=== PATIENT | female | born 1955 | race Caucasian/White ===

== ENCOUNTER → 2017-07-08 12:45 | Outpatient (CLI) | payer BC, SELFPAY ==
--- NOTE | 2017-07-08 12:50 | CA_ITS ---
PROCEDURE: 2-D M-mode and color Doppler study INDICATIONS FOR THE TEST: Chest pain COPD Heart Murmur Tobacco Smoking Palpitations Fatigue Syncope Edema Hypertension+Diabetes Mellitus Rheumatic Fever SOB+MCLAIN Obesity Hyperlipidemia Family History HD Additional History PATIENT INFORMATION HEIGHT: 65 WEIGHT:159 GENDER: Female B/P:128/87 2-D/M-MODE INTERPRETATION: 2-D MEASUREMENTS OBSERVED VALUES IN CMS Right Ventricular Dimension (RVDd) 1.9 Interventricular Septum (Thickness)(IVsd) 0.9 Left Ventricular Internal Dimensions(LVIDd) 3.8 Left Ventricular Posterior Wall (Thickness)(LVPWd) 1.2 Aortic Root 2.8 Aortic Cusp Separation 1.9 Left Atrial Dimensions (LAD) 3.8 2D 1. Left atrium is mildly enlarged, left ventricle is normal size, there is mild concentric left ventricular hypertrophy, visually estimated ejection fraction 55% with no obvious regional wall motion abnormality, there is abnormal septal motion. 2. The right atrium and right ventricle size and contractility. 3. The aortic valve is minimally thickened 4.mitral and tricuspid valve are grossly normal. 5. The pulmonic valve is poorly visualized. 6. There is no significant pericardial effusion noted. DOPPLER INTERROGATION: Doppler interrogation of the aortic, mitral and tricuspid valvular presence of mild mitral and tricuspid regurgitation, tricuspid regurgitant jet velocity insufficient for calculation of the right ventricular systolic pressure, grade 1 diastolic dysfunction seen with tissue Doppler evidence of raised left atrial pressure. CONCLUSION: 1. Mildly enlarged left atrium, normal left ventricular size, mild concentric left ventricular hypertrophy, visually estimated ejection fraction 55% with no obvious regional wall motion abnormality, there is abnormal septal motion. Grade 1 diastolic dysfunction seen with tissue Doppler evidence of raised left atrial pressure. 2. Mild mitral and tricuspid regurgitation 3. No significant pericardial effusion noted.
== END ==
PROVIDERS: PCP Emergency Medicine; Visit Provider Internal Medicine Cardiovascular Disease
DX: R94.31 Abnormal electrocardiogram [ECG] [EKG] (principal); I10 Essential (primary) hypertension; K21.9 Gastro-esophageal reflux disease without esophagitis
CPT/HCPCS: 93306

== ENCOUNTER → 2017-07-15 12:53 | Outpatient (CLI) | payer BC, SELFPAY | PROVIDERS: PCP Emergency Medicine; Visit Provider Internal Medicine Cardiovascular Disease | DX: G47.33 Obstructive sleep apnea (adult) (pediatric) (principal); I10 Essential (primary) hypertension | CPT/HCPCS: 95806; G0399 ==

== ENCOUNTER → 2017-07-19 09:15 | Outpatient (CLI) | payer BC, SELFPAY ==
[2017-07-19 11:58] LABS: Anion Gap 11.6 mEq/L (5-15); Blood Urea Nitrogen 16 mg/dL (7-18); Carbon Dioxide 29 mmol/L (21.0-32.0); Chloride 105 mmol/L (98-107); Creatinine,Serum 0.73 mg/dL (0.55-1.02); Estimated Glomerular Filt Rate 81 ml/min (>60); GFR (African American) 98 ML/MIN (>60); Glucose 90 mg/dL (74-106); Potassium 4.6 mmoL/L (3.5-5.1); Sodium 141 mmol/L (136-145)
== END ==
PROVIDERS: Visit Provider Internal Medicine Cardiovascular Disease
DX: I10 Essential (primary) hypertension (principal); K21.9 Gastro-esophageal reflux disease without esophagitis
CPT/HCPCS: 36415; 80048; 83880

== ENCOUNTER → 2017-10-08 09:40 | Outpatient (CLI) | payer BC, SELFPAY ==
[2017-10-08 09:53] LABS: Basophils % 0.4 % (0.1-2.0); Eosinophils # 0.2 K/mm3 (0.0-0.4); Eosinophils % 3.3 % (0.1-12.0); Hematocrit 43.1 % (37.0-47.0); Hemoglobin 14.2 g/dL (12.2-16.2); Lymphocytes # 1.6 K/mm3 (0.7-4.5); Lymphocytes % 23.5 K/mm3 (10-50); Mean Corpuscular HGB Conc 32.9 g/dL (31.8-35.4); Mean Corpuscular Hemoglobin 30.3 pg (27.0-31.2); Mean Platelet Volume 7.7 fl (7.4-10.4); Monocytes # 0.4 K/mm3 (0.1-1.0); Monocytes % 5.1 % (1.7-9.3); Neutrophils # 4.7 K/mm3 (1.8-7.8); Neutrophils % 67.7 % (37.0-80.0); Platelet Count 246 K/mm3 (142-424); Red Blood Count 4.68 M/mm3 (4.20-5.40); Red Cell Distribution Width 12.9 % (11.5-17.5)
[2017-10-08 11:36] LABS: Alanine Aminotransferase 35 U/L (12-78); Albumin Level 3.7 gm/dL (3.4-5.0); Albumin/Globulin Ratio 1.2 (1.1-1.8); Alkaline Phosphatase 115 U/L (46-116); Anion Gap 10.1 mEq/L (5-15); Aspartate Amino Transferase 15 U/L (15-37); Bilirubin,Total 0.4 mg/dL (0.2-1.0); Blood Urea Nitrogen 11 mg/dL (7-18); Calcium 9.1 mg/dL (8.5-10.1); Carbon Dioxide 31 mmol/L (21.0-32.0); Chloride 106 mmol/L (98-107); Creatinine,Serum 0.72 mg/dL (0.55-1.02); Estimated Glomerular Filt Rate 82 ml/min (>60); GFR (African American) 100 ML/MIN (>60); Globulin 3.2 gm/dl (1.3-3.2); Glucose 95 mg/dL (74-106); Potassium 4.1 mmoL/L (3.5-5.1); Sodium 143 mmol/L (136-145); Total Protein,Serum 6.9 gm/dL (6.4-8.2)
[2017-10-08 11:46] LABS: Thyroid Stimulating Hormone 3.53 uIU/ml (0.358-3.740)
[2017-10-09 17:12] LABS: Vitamin B12 387 pg/mL (232-1245)
== END ==
PROVIDERS: Visit Provider Nurse Practitioner Family
DX: R53.83 Other fatigue (principal); I10 Essential (primary) hypertension; E66.9 Obesity, unspecified; G47.33 Obstructive sleep apnea (adult) (pediatric); G47.8 Other sleep disorders
CPT/HCPCS: 36415; 80053; 82607; 82746; 84443; 85025

== ENCOUNTER → 2017-10-23 20:12 | Outpatient (CLI) | payer BC, SELFPAY | PROVIDERS: PCP Emergency Medicine; Visit Provider Nurse Practitioner Family | DX: G47.33 Obstructive sleep apnea (adult) (pediatric) (principal) | CPT/HCPCS: 95811 ==

== ENCOUNTER → 2017-10-29 10:02 | Outpatient (POV) | payer BC, SELFPAY | PROVIDERS: PCP Emergency Medicine; Visit Provider Otolaryngology | DX: Z00.00 Encounter for general adult medical examination without abnormal findings (principal) ==

== ENCOUNTER → 2017-12-10 09:43 | Outpatient (POV) | payer BC, SELFPAY | PROVIDERS: Visit Provider Otolaryngology | DX: Z00.00 Encounter for general adult medical examination without abnormal findings (principal) ==

== ENCOUNTER → 2018-01-28 09:16 | Outpatient (POV) | payer BC, SELFPAY | PROVIDERS: Visit Provider Otolaryngology | DX: Z00.00 Encounter for general adult medical examination without abnormal findings (principal) ==

== ENCOUNTER → 2018-05-27 09:07 | Outpatient (POV) | payer BC, SELFPAY | PROVIDERS: Visit Provider Otolaryngology | DX: Z00.00 Encounter for general adult medical examination without abnormal findings (principal) ==

== ENCOUNTER → 2018-11-20 11:49 | Outpatient (CLI) | payer BC, SELFPAY | PROVIDERS: PCP Emergency Medicine; Visit Provider Nurse Practitioner Family | DX: G47.33 Obstructive sleep apnea (adult) (pediatric) (principal); G47.00 Insomnia, unspecified; G47.34 Idiopathic sleep related nonobstructive alveolar hypoventilation | CPT/HCPCS: 94762 ==

== ENCOUNTER → 2019-12-17 08:29 | Outpatient (CLI) | payer BC, SELFPAY | PROVIDERS: PCP Emergency Medicine; Visit Provider Nurse Practitioner Family | DX: G47.33 Obstructive sleep apnea (adult) (pediatric) (principal); G47.34 Idiopathic sleep related nonobstructive alveolar hypoventilation | CPT/HCPCS: 94762 ==

== ENCOUNTER → 2020-02-18 13:16 | Outpatient (CLI) | payer BC, SELFPAY ==
[2020-02-18 15:00] LABS: Anion Gap 15.5 mEq/L (5-15); Blood Urea Nitrogen 20 mg/dl (7-17); Calcium 10.4 mg/dl (8.4-10.2); Carbon Dioxide 26 mmol/L (22.0-30.0); Chloride 98 mmol/L (98-107); Estimated Glomerular Filt Rate 85 ml/min (>60); GFR (African American) 102 ML/MIN (>60); Glucose 95 mg/dl (74-100); Potassium 4.5 mmoL/L (3.5-5.1); Sodium 135 mmol/L (136-145)
== END ==
PROVIDERS: Visit Provider Internal Medicine Cardiovascular Disease
DX: I10 Essential (primary) hypertension (principal)
CPT/HCPCS: 36415; 80048

== ENCOUNTER 2020-10-17 16:23 | Emergency (ER) | payer BC, SELFPAY ==
[2020-10-17 17:33] VITALS: BP 120/52; PULSE 74; RESP 14; TEMP 36.6; O2SAT 98; BMI 34.7
--- NOTE | 2020-10-17 17:39 | XR_ITS ---
PROCEDURE INFORMATION: Exam: XR Right Shoulder Exam date and time: 10/17/2020 5:39 PM Age: 65 years old Clinical indication: Injury or trauma; Fall; Blunt trauma (contusions or hematomas); Shoulder; Right; Injury date: 10/17/2020 TECHNIQUE: Imaging protocol: XR Right shoulder. Views: 2 or more views. COMPARISON: CR CXR CHEST(2 VIEWS-NOT PORTABLE) 05/30/2015 11:34 AM FINDINGS: Bones/joints: No fracture. No malalignment. Mild degenerative changes at the glenohumeral joint and AC joint. There is an inferiorly projecting osteophyte from the AC joint. Soft tissues: Normal. IMPRESSION: No evidence of acute osseous injury
--- NOTE | 2020-10-17 18:08 | HMH.EDUTC ---
[facility] [place] Disposition Clinical Impression: Fall Qualifiers: Encounter type: initial encounter Qualified Code(s): W19.XXXA - Unspecified fall, initial encounter Right shoulder pain Qualifiers: Chronicity: acute Qualified Code(s): M25.511 - Pain in right shoulder Contusion of right shoulder Qualifiers: Encounter type: initial encounter Qualified Code(s): S40.011A - Contusion of right shoulder, initial encounter Disposition: Home, Self-Care Condition on Discharge: Good Instructions: Shoulder Sprain, DI for Shoulder Sprain Additional Instructions: Rest the extremity, Elevate the extremity as tolerated while you are resting. Take ibuprofen for pain. I sent in a prescription to your pharmacy. Follow up with Dr. Meng (orthopedics). I put in a referral but you need to call his office and schedule an appointment. Follow up with your regular doctor. GO TO THE ER FOR ANY WORSENING SYMPTOMS Prescriptions: Ibuprofen [Ibuprofen 600mg Tablet] 600 mg PO Q6HP PRN #30 tab PRN Reason: Mild Pain Transmission Status: Received by [id number] Referrals: Sampson Camp MD [Primary Care Provider] - Cecilio Meng MD [Staff Physician] - Time of Disposition: 18:17 Medical Decision Making - Medical Records Medical records reviewed: No: I reviewed the patient's medical records. - Shaun Inquiry Pt receiving controlled substance: No Vital Signs: 10/17/20 17:33 10/17/20 18:41 Temperature 97.9 F 98 F Temperature Source Oral Pulse Rate 75 Pulse Rate [Left] 74 Respiratory Rate 14 18 Blood Pressure 00/00 L Blood Pressure [Right Arm] 120/52 L Blood Pressure Mean [Right Arm] 74 02 Sat by Pulse Oximetry 98 - Radiology Data #1 Image(s): Shoulder Image Reviewed: Yes I reviewed the patient's radiology image, Yes I have reviewed radiologist's interpretation Preliminary Findings: No Fracture Seen PROCEDURE INFORMATION: Exam: XR Right Shoulder Exam date and time: 10/17/2020 5:39 PM Age: 65 years old Clinical indication: Injury or trauma; Fall; Blunt trauma (contusions or hematomas); Shoulder; Right; Injury date: 10/17/2020 TECHNIQUE: Imaging protocol: XR Right shoulder. Views: 2 or more views. COMPARISON: CR CXR CHEST(2 VIEWS-NOT PORTABLE) 05/30/2015 11:34 AM FINDINGS: Bones/joints: No fracture. No malalignment. Mild degenerative changes at the glenohumeral joint and AC joint. There is an inferiorly projecting osteophyte from the AC joint. Soft tissues: Normal. IMPRESSION: No evidence of acute osseous injury [facility] [place] HPI - General Stated complaint: [id number]@1500 right shoulder injury Time Seen by Provider: 10/17/20 18:08 Mode of Arrival: Ambulatory Source of Information: Patient Limitations: No Limitations Description of Symptoms (Recalled from Triage Doc. by RN): pt states she fell down a bank on her R shoulder. she now is c/o of pain and difficulty moving her arm. HEENT Symptoms (Recalled from RN notes): No Resp Symptoms (Recalled from RN notes): No Skin Symptoms (Recalled from RN notes): No MS Symptoms (Recalled from RN notes): Yes (R shoulder pain from fall) Functional Status (Recalled from RN notes): na - History of Present Illness Provider Complaint: She states that she fell this morning after being in her garden. She had mud on her shoes and as she stepped up on her steps she slipped and came down on her right shoulder. She denies any other injury. She did not hit her head. - Related Data Home Medications Medication Instructions Recorded Confirmed Montelukast Sodium [Singulair 10mg 10 mg PO PM 01/20/18 02/11/20 tablet] Previous Rx's Medication Instructions Recorded hydrochlorothiazide 12.5 mg tablet 12.5 mg PO QDAY #90 tab 02/11/20 losartan 50 mg tablet 50 mg PO DAILY #90 tab 03/06/20 carvedilol 6.25 mg tablet 6.25 mg PO BID #180 tab 03/21/20 Ibuprofen [Ibuprofen 600
[2020-10-17 18:41] VITALS: BP 00/00; PULSE 75; RESP 18; TEMP 36.6
== END 2020-10-17 18:40 | disposition home or self-care (01) ==
PROVIDERS: Emergency Provider Nurse Practitioner Family; PCP Emergency Medicine
DX: S40.011A Contusion of right shoulder, initial encounter (principal); W19.XXXA Unspecified fall, initial encounter; Y92.017 Garden or yard in single-family (private) house as the place of occurrence of the external cause
CPT/HCPCS: 73030; 99202; G0463

== ENCOUNTER → 2021-02-09 11:07 | Outpatient (CLI) | payer BC, SELFPAY ==
[2021-02-09 12:21] LABS: Alanine Aminotransferase 16 U/L (12-78); Albumin Level 4.7 g/dl (3.5-5.0); Alkaline Phosphatase 83 U/L (38-126); Aspartate Amino Transferase 27 U/L (14-36); Bilirubin,Direct 0.1 mg/dl (0.0-0.4); Bilirubin,Indirect 0.4 mg/dL (0.0-0.9); Bilirubin,Total 0.5 mg/dl (0.2-1.3); Bilirubin,Unconjugated 0.3 mg/dL (0.0-1.1); Chol/HDL Ratio 4.1 (1-3.5); Cholesterol 227 mg/dl (140-200); HDL Cholesterol 55 mg/dl (40-60); Total Protein,Serum 7.8 g/dl (6.3-8.2); Triglycerides 202 mg/dl (30-150); VLDL Cholesterol 40 mg/dL (0-40)
[2021-02-09 12:32] LABS: Direct LDL Cholesterol 145.07 mg/dL (100-129)
== END ==
PROVIDERS: Visit Provider Nurse Practitioner Family
DX: E78.5 Hyperlipidemia, unspecified (principal)
CPT/HCPCS: 36415; 80061; 80076

== ENCOUNTER → 2021-12-06 11:12 | Outpatient (CLI) | payer MEDICARE, SELFPAY | PROVIDERS: PCP Emergency Medicine; Visit Provider Surgery | DX: Z01.812 Encounter for preprocedural laboratory examination (principal); Z20.822 Contact with and (suspected) exposure to COVID-19; Z12.11 Encounter for screening for malignant neoplasm of colon | CPT/HCPCS: C9803; U0003; U0005 ==

== ENCOUNTER 2021-12-08 07:40 | Day surgery (SDC) | payer MEDICARE, SELFPAY ==
[2021-12-06 10:46] VITALS: BMI 33.5
[2021-12-08 08:05] VITALS: BP 133/74; PULSE 69; RESP 18; TEMP 36.2; O2SAT 96
[2021-12-08 08:19] VITALS: O2SAT 96
--- NOTE | 2021-12-08 08:25 | EXP.ANES.CKL ---
[facility] Medical History Bundle branch block Carpal tunnel syndrome of left wrist Surgical History H/O tubal ligation History of cholecystectomy Family History Father Family history of stroke Other Cancer Diabetes Hypertension Stroke Social History Smoking Status: Former smoker alcohol intake: never counseling provided: none substance use type: denies use current occupational status: retired Travel in the last 8 weeks: None household members: spouse housing: house marital status: caffeine: No [facility] Anesthesia Checklist Patient Identification Patient Identification: Arm Band Structural Data Admitted From: Home Planned Operative Procedure/s: colonoscopy Consent for Planned Operative Procedure(s) Verified: Yes Verified Documents: Surgical Consent and History and Physical NPO Status Verified Time NPO: 00:00 Additional verifications Anesthesia Reactions: No Airway Assessment C-Spine Mobility Assessed: Yes TMJ Mobility Assessed: Yes Dentition: Good Dentition Neurological Assessment Level of Consciousness: Awake and Alert Anesthesia Plan Anesthesia Risk discussed: Yes Anesthesia Plan: Verified ASA Class: II Anesthesia Type: MAC
--- NOTE | 2021-12-08 09:03 | HMH.SCOPE ---
Procedure: Date: 12/08/21 Patient Date of :: 1955 Procedure Performed:: Total colonoscopy to terminal ileum with biopsy and snare polypectomy Indications:: 66-year-old female with family history of colon cancer in her maternal grandfather. I performed colonoscopy in 2016 and she had 6-7 tubular adenomas. 2-year follow-up colonoscopy was performed on 02/07/2018 and she had a tubular adenoma. 3-year follow-up was recommended. Performing Provider:: Osvaldo Bender MD Referring Provider:: Cyrus Camp Sedation:: MAC sedation Procedure:: Patient history was obtained and appropriate physical examination was performed. Informed consent was obtained after explaining the benefits, alternatives, and risks of the procedure including, but not limited to, bleeding, perforation, missed lesions, and adverse reaction to anesthesia medications. Patient was informed of post-sedation precautions. The patient desired to proceed. Patient was transported to endoscopy procedure room. Patient was connected to monitoring devices. Patient was positioned in lateral decubitus position. Digital anorectal exam was performed. Variable stiffness Olympus colonoscope was inserted and advanced under direct visualization to the cecum. Adequacy of the colonic preparation was noted. The colonoscope was advanced a short distance into the terminal ileum. The colonoscope was then slowly withdrawn while carefully examining the color, texture, anatomy, and integrity of the mucosoa circumferentially. Within the rectum retroflexion was performed. Colonoscope was then withdrawn. Findings:: Good preparation Terminal ileum normal Moderate sessile adenomatous polyp in sigmoid colon removed with cold cutting snare Very rare sigmoid diverticuli Focal red spot in distal sigmoid colon, likely inconsequential, biopsied to rule out early adenomatous change Internal anal papilla Recommendations:: Follow-up colonoscopy pending pathology, likely 3 to 5 years Complications:: None immediately apparent Estimated blood obtained (mL): 1
[2021-12-08 09:05] VITALS: BP 107/65; PULSE 82; RESP 16; TEMP 36.2; O2SAT 94
[2021-12-08 09:15] VITALS: BP 95/56; PULSE 73; RESP 16; O2SAT 96
[2021-12-08 09:25] VITALS: BP 119/65; PULSE 69; RESP 16; O2SAT 98
[2021-12-08 09:35] VITALS: BP 140/56; PULSE 88; RESP 16; O2SAT 97
== END 2021-12-08 09:35 | disposition home or self-care (01) ==
PROVIDERS: PCP Emergency Medicine; Visit Provider Surgery
PROC: 0DJD8ZZ Inspection of Lower Intestinal Tract, Via Natural or Artificial Opening Endoscopic (ICD-10-PCS; principal; 2021-12-08 08:30)
DX: Z12.11 Encounter for screening for malignant neoplasm of colon (principal); K63.5 Polyp of colon; Z86.010 Personal history of colon polyps; Z80.0 Family history of malignant neoplasm of digestive organs; Z79.899 Other long term (current) drug therapy
CPT/HCPCS: 45380; 45385; 88305

== ENCOUNTER → 2022-01-16 12:33 | Outpatient (CLI) | payer MEDICARE, SELFPAY ==
[2022-01-16 12:45] LABS: Microscopic, Urine URINE MICROSCOPIC (MICROSCOPIC)
[2022-01-16 14:11] LABS: Basophils # 0.1 K/mm3 (0-0.2); Basophils % 1.6 % (0.1-2.0); Eosinophils # 0.1 K/mm3 (0.0-0.4); Eosinophils % 0.7 % (0.1-12.0); Hematocrit 46.4 % (37.0-47.0); Lymphocytes % 23.5 % (10-50); Mean Corpuscular HGB Conc 32.2 g/dL (31.8-35.4); Mean Corpuscular Hemoglobin 30.9 pg (27.0-31.2); Mean Corpuscular Volume 95.8 fl (81-99); Mean Platelet Volume 8.6 fl (7.4-10.4); Monocytes # 0.4 K/mm3 (0.1-1.0); Monocytes % 4.8 % (1.7-9.3); Neutrophils # 5.9 K/mm3 (1.8-7.8); Neutrophils % 69.4 % (37.0-80.0); Platelet Count 298 K/mm3 (142-424); Red Blood Count 4.85 M/mm3 (4.20-5.40); Red Cell Distribution Width 13.2 % (11.5-17.5); White Blood Count 8.5 K/mm3 (4.8-10.8)
[2022-01-16 14:15] LABS: Appearance,Urine CLEAR (Clear); Bilirubin,Urine Negative (Negative); Blood, Urine TRACE-I (Negative); Color,Urine YELLOW (Yellow); Glucose,Urine (UA) Negative (Negative); Ketones,Urine 1+ (Negative); Leukocyte Esterase,Urine Negative (Negative); Nitrate,Urine Negative (Negative); PH,Urine 5.5 (5.0-8.5); Protein,Urine Negative (Negative); Specific Gravity, Urine >= 1.030 (1.005-1.030); Urobilinogen,Urine 0.2 EU/dl (0.2)
[2022-01-16 14:25] LABS: Bacteria,Urine Trace /lpf; Squamous Epithelial Cell,Urine Occasional #/hpf (0-5); WBC,Urine Occasional #/hpf (0-3)
[2022-01-16 14:53] LABS: Chloride 100 mmol/L (98-107); Sodium 141 mmol/L (136-145)
[2022-01-16 14:56] LABS: Alanine Aminotransferase 25 U/L (12-78); Alkaline Phosphatase 107 U/L (38-126); Aspartate Amino Transferase 33 U/L (14-36); Bilirubin,Total 0.7 mg/dl (0.2-1.3); Blood Urea Nitrogen 12 mg/dl (7-17); Carbon Dioxide 28 mmol/L (22.0-30.0); Estimated Glomerular Filt Rate 84 ml/min (>60); GFR (African American) 102 ML/MIN (>60)
[2022-01-16 14:57] LABS: Albumin Level 4.9 g/dl (3.5-5.0); Albumin/Globulin Ratio 1.8 (1.1-1.8); Calcium 10.3 mg/dl (8.4-10.2); Chol/HDL Ratio 5.3 (1-3.5); Cholesterol 251 mg/dl (140-200); Globulin 2.8 g/dL (1.3-3.2); Glucose 80 mg/dl (74-100); HDL Cholesterol 47 mg/dl (40-60); Total Protein,Serum 7.7 g/dl (6.3-8.2); Triglycerides 135 mg/dl (30-150); VLDL Cholesterol 27 mg/dL (0-40)
[2022-01-16 15:08] LABS: Direct LDL Cholesterol 155.33 mg/dL (100-129)
[2022-01-16 15:27] LABS: Thyroid Stimulating Hormone 2.13 uIU/mL (0.465-4.68)
== END ==
PROVIDERS: PCP Family Medicine; Visit Provider Family Medicine
DX: I10 Essential (primary) hypertension (principal); Z13.6 Encounter for screening for cardiovascular disorders; Z13.1 Encounter for screening for diabetes mellitus
CPT/HCPCS: 36415; 80053; 80061; 81001; 84443; 85025

== ENCOUNTER → 2022-02-13 08:23 | Outpatient (CLI) | payer MEDICARE, SELFPAY ==
--- NOTE | 2022-02-13 08:30 | MM_ITS ---
PROCEDURE INFORMATION: Exam: MG Bilateral Screening 3D Mammography Exam date and time: 02/13/2022 8:36 AM Age: 66 years old Clinical indication: Baseline screening mammogram TECHNIQUE: Imaging protocol: Bilateral Screening tomosynthesis and 2D mammography including computer-aided detection (CAD) when performed. COMPARISON: No relevant prior studies available. FINDINGS: MAMMOGRAPHY: Breast composition: There are scattered areas of fibroglandular density. Mass: None. Architectural distortion: No new or suspicious architectural distortion. Calcifications: No new or suspicious calcifications are present Asymmetric density: No new or suspicious asymmetric density is present Skin thickening: None. Axillary adenopathy: None. IMPRESSION: No mammographic evidence of malignancy. Recommend annual screening mammography unless otherwise clinically indicated. ASSESSMENT: BI-RADS category 1: Negative
--- NOTE | 2022-02-13 08:30 | XR_ITS ---
FINAL REPORT CLINICAL HISTORY: post menopausal FINDINGS: Using L1-4, the bone mineral density of the spine is 0.902 g/cm2, corresponding to T-score of -1.3. Using the left hip, the bone mineral density of the femoral neck is 0.813 g/cm2, corresponding to a T-score of -1.1. FRAX data: 7.2% chance of major osteoporotic fracture and 0.4% chance of hip fracture. Using the right hip, the bone mineral density of the femoral neck is 0.688 g/cm2, corresponding to a T-score of -1.5. FRAX data: 8.2% chance of major osteoporotic fracture and 0.8% chance of hip fracture. IMPRESSION: Osteopenia of the proximal femurs and lumbar spine. Reviewed, Interpreted and Dictated by Osvaldo Parker III, MD Transcribed by Nelson Lara Authenticated and [facility]
== END ==
PROVIDERS: PCP Family Medicine; Visit Provider Family Medicine
DX: Z12.31 Encounter for screening mammogram for malignant neoplasm of breast (principal); E89.40 Asymptomatic postprocedural ovarian failure
CPT/HCPCS: 77063; 77067; 77080

== ENCOUNTER → 2022-03-19 12:27 | Outpatient (CLI) | payer MEDICARE, SELFPAY ==
[2022-03-19 13:51] LABS: Alanine Aminotransferase 25 U/L (12-78); Albumin Level 4.7 g/dl (3.5-5.0); Albumin/Globulin Ratio 1.6 (1.1-1.8); Alkaline Phosphatase 101 U/L (38-126); Anion Gap 14.4 mEq/L (5-15); Aspartate Amino Transferase 28 U/L (14-36); Bilirubin,Total 0.9 mg/dl (0.2-1.3); Blood Urea Nitrogen 23 mg/dl (7-17); Calcium 9.8 mg/dl (8.4-10.2); Carbon Dioxide 27 mmol/L (22.0-30.0); Chloride 100 mmol/L (98-107); Chol/HDL Ratio 3.2 (1-3.5); Cholesterol 145 mg/dl (140-200); Creatine Kinase 93 U/L (30-135); Estimated Glomerular Filt Rate 84 ml/min (>60); GFR (African American) 102 ML/MIN (>60); Glucose 91 mg/dl (74-100); HDL Cholesterol 46 mg/dl (40-60); Potassium 4.4 mmoL/L (3.5-5.1); Sodium 137 mmol/L (136-145); Total Protein,Serum 7.7 g/dl (6.3-8.2); Triglycerides 126 mg/dl (30-150); VLDL Cholesterol 25 mg/dL (0-40)
[2022-03-19 14:02] LABS: Direct LDL Cholesterol 70.78 mg/dL (100-129)
== END ==
PROVIDERS: PCP Family Medicine; Visit Provider Family Medicine
DX: E78.5 Hyperlipidemia, unspecified (principal); I10 Essential (primary) hypertension
CPT/HCPCS: 36415; 80053; 80061; 82550

== ENCOUNTER → 2022-10-10 12:25 | Outpatient (CLI) | payer MEDICARE, SELFPAY ==
--- NOTE | 2022-10-10 12:33 | XR_ITS ---
FINAL REPORT CLINICAL HISTORY: right medial knee pain,no injury COMPARISON: None FINDINGS: Three views of the right knee reveal no evidence of fracture or dislocation. The bony alignment is normal. There is moderate diffuse degenerative change. There is no evidence of joint effusion. No localized soft tissue abnormality is identified. IMPRESSION: No acute abnormality identified. Moderate diffuse degenerative change. Reviewed, Interpreted and Dictated by Osvaldo Parker III, MD Transcribed by Teresa Beckford Authenticated and [facility]
== END ==
PROVIDERS: PCP Nurse Practitioner Family; Visit Provider Orthopaedic Surgery
DX: G89.29 Other chronic pain (principal); M25.561 Pain in right knee
CPT/HCPCS: 73562

== ENCOUNTER → 2023-01-17 23:59 | Outpatient (CLI) | payer MEDICARE, SELFPAY ==
[2023-01-17 15:52] LABS: Microscopic, Urine URINE MICROSCOPIC (MICROSCOPIC)
[2023-01-17 16:18] LABS: Appearance,Urine CLEAR (Clear); Bilirubin,Urine Negative (Negative); Blood, Urine Negative (Negative); Color,Urine YELLOW (Yellow); Glucose,Urine (UA) Negative (Negative); Ketones,Urine Negative (Negative); Leukocyte Esterase,Urine TRACE (Negative); Nitrate,Urine Negative (Negative); Protein,Urine Negative (Negative); Urobilinogen,Urine 0.2 EU/dl (0.2)
[2023-01-17 17:21] LABS: Amorphous Sediment,Urine 2+ /lpf; Bacteria,Urine 3+ /lpf; WBC,Urine Occasional #/hpf (0-3)
[2023-01-17 22:11] LABS: Alanine Aminotransferase 29 U/L (12-78); Albumin Level 4.8 g/dl (3.5-5.0); Albumin/Globulin Ratio 1.7 (1.1-1.8); Alkaline Phosphatase 82 U/L (38-126); Anion Gap 18.4 mEq/L (5-15); Aspartate Amino Transferase 33 U/L (14-36); Bilirubin,Total 0.7 mg/dl (0.2-1.3); Blood Urea Nitrogen 23 mg/dl (7-17); Calcium 9.7 mg/dl (8.4-10.2); Carbon Dioxide 23 mmol/L (22.0-30.0); Chloride 99 mmol/L (98-107); Chol/HDL Ratio 3.3 (1-3.5); Cholesterol 135 mg/dl (140-200); Estimated Glomerular Filt Rate 84 ml/min (>60); GFR (African American) 101 ML/MIN (>60); Globulin 2.8 g/dL (1.3-3.2); Glucose 83 mg/dl (74-100); HDL Cholesterol 41 mg/dl (40-60); Potassium 4.4 mmoL/L (3.5-5.1); Sodium 136 mmol/L (136-145); Total Protein,Serum 7.6 g/dl (6.3-8.2); Triglycerides 139 mg/dl (30-150); VLDL Cholesterol 28 mg/dL (0-40)
[2023-01-17 22:24] LABS: Direct LDL Cholesterol 67.05 mg/dL (100-129)
[2023-01-17 22:34] LABS: 25-OH Vitamin D, Total 51.7 ng/mL (30-100)
[2023-01-17 22:35] LABS: Free T4 (Free Thyroxine) 1.44 ng/dl (0.78-2.19)
[2023-01-17 22:44] LABS: Thyroid Stimulating Hormone 0.17 uIU/mL (0.465-4.68)
[2023-01-17 23:03] LABS: Vitamin B12 669 pg/mL (239-931)
== END ==
PROVIDERS: PCP Nurse Practitioner Family; Visit Provider Nurse Practitioner Family
DX: Z13.1 Encounter for screening for diabetes mellitus (principal); Z68.35 Body mass index [BMI] 35.0-35.9, adult; R35.0 Frequency of micturition; M85.80 Other specified disorders of bone density and structure, unspecified site; I10 Essential (primary) hypertension; G47.33 Obstructive sleep apnea (adult) (pediatric); E78.5 Hyperlipidemia, unspecified; M17.11 Unilateral primary osteoarthritis, right knee; E66.9 Obesity, unspecified; Z79.899 Other long term (current) drug therapy
CPT/HCPCS: 80053; 80061; 81001; 82306; 82607; 84439; 84443; 87086

== ENCOUNTER → 2023-02-14 09:58 | Outpatient (CLI) | payer MEDICARE, SELFPAY ==
--- NOTE | 2023-02-14 09:59 | MM_ITS ---
PROCEDURE INFORMATION: Exam: MG Bilateral Screening 3D Mammography Exam date and time: 02/14/2023 9:51 AM Age: 67 years old Clinical indication: Screening examination. Her maternal grandmother had breast cancer. TECHNIQUE: Imaging protocol: Bilateral Screening tomosynthesis and 2D mammography including computer-aided detection (CAD) when performed. COMPARISON: MG MM DIG SCREENING MAMM BI W/CAD 02/13/2022 8:36 AM FINDINGS: MAMMOGRAPHY: Breast composition: There are scattered areas of fibroglandular density. Mass: None. Architectural distortion: None. Calcifications: No suspicious calcifications. Asymmetric density: None. Skin thickening: None. Axillary adenopathy: None. IMPRESSION: No mammographic evidence of malignancy. Annual screening is recommended unless otherwise clinically indicated. ASSESSMENT: BI-RADS Category 1: Negative
== END ==
PROVIDERS: PCP Nurse Practitioner Family; Visit Provider Nurse Practitioner Family
DX: Z12.31 Encounter for screening mammogram for malignant neoplasm of breast (principal)
CPT/HCPCS: 77063; 77067

== ENCOUNTER 2023-06-24 10:27 | Outpatient (CLI) | payer MEDICARE, SELFPAY ==
--- NOTE | 2023-06-24 10:32 | XR_ITS ---
FINAL REPORT CLINICAL HISTORY: left knee pain FINDINGS: LEFT KNEE Three views demonstrate no acute fracture or dislocation. There is moderate medial compartment joint space narrowing. There are osteophytes in the medial joint margin consistent with mild to moderate osteoarthritis. No acute soft tissue abnormality is seen. IMPRESSION: Mild to moderate osteoarthritis. Reviewed, Interpreted and Dictated by Piyush Dunn MD Transcribed by Ebony Beaulieu Authenticated and [facility]
== END 2023-06-24 23:59 ==
LOC: RAD 10:28
PROVIDERS: PCP Nurse Practitioner Family; Visit Provider Nurse Practitioner Family
DX: M25.562 Pain in left knee (principal)
CPT/HCPCS: 73562

== ENCOUNTER 2024-01-20 14:28 | Outpatient (CLI) | payer MEDICARE, SELFPAY ==
--- NOTE | 2024-01-20 14:33 | XR_ITS ---
FINAL REPORT CLINICAL HISTORY: left hip pain COMPARISON: None FINDINGS: LEFT HIP: Two views of the left hip with an AP pelvis view demonstrate no acute fracture or dislocation. There are mild degenerative changes of both hips. The visualized bony structures are well aligned. No soft tissue abnormality is seen. IMPRESSION: Degenerative changes without acute bony abnormality. Reviewed, Interpreted and Dictated by Osvaldo Parker III, MD Transcribed by Danni Ellis Authenticated and [facility]
--- NOTE | 2024-01-20 14:33 | XR_ITS ---
FINAL REPORT CLINICAL HISTORY: low back pain COMPARISON: None FINDINGS: 5 views of the lumbosacral spine were obtained. There is no evidence of fracture or dislocation. The vertebral alignment is normal. Moderate degenerative changes are noted. There is mild rightward curvature. No paraspinous soft tissue abnormalities identified. There are vascular calcifications. IMPRESSION: Degenerative changes without acute bony abnormality. Reviewed, Interpreted and Dictated by Osvaldo Parker III, MD Transcribed by Danni Ellis Authenticated and [facility]
[2024-01-20 16:57] LABS: Microscopic, Urine URINE MICROSCOPIC (MICROSCOPIC)
[2024-01-20 17:30] LABS: Basophils # 0.1 K/mm3 (0-0.2); Basophils % 0.7 % (0.1-2.0); Eosinophils # 0.1 K/mm3 (0.0-0.4); Eosinophils % 1.3 % (0.1-12.0); Hematocrit 44.9 % (37.0-47.0); Hemoglobin 15.2 g/dL (12.2-16.2); Lymphocytes # 1.9 K/mm3 (0.7-4.5); Lymphocytes % 24.8 % (10-50); Mean Corpuscular HGB Conc 33.9 g/dL (31.8-35.4); Mean Corpuscular Volume 91.3 fl (81-99); Monocytes # 0.4 K/mm3 (0.1-1.0); Neutrophils # 5.1 K/mm3 (1.8-7.8); Neutrophils % 68.2 % (37.0-80.0); Platelet Count 249 K/mm3 (142-424); Red Blood Count 4.92 M/mm3 (4.20-5.40); Red Cell Distribution Width 13.3 % (11.5-17.5); White Blood Count 7.5 K/mm3 (4.8-10.8)
[2024-01-20 18:18] LABS: Alanine Aminotransferase 19 U/L (12-78); Albumin Level 4.7 g/dl (3.5-5.0); Albumin/Globulin Ratio 1.7 (1.1-1.8); Alkaline Phosphatase 102 U/L (38-126); Anion Gap 15.1 mEq/L (5-15); Aspartate Amino Transferase 23 U/L (14-36); Bilirubin,Total 0.6 mg/dl (0.2-1.3); Blood Urea Nitrogen 13 mg/dl (7-17); Calcium 9.9 mg/dl (8.4-10.2); Carbon Dioxide 25 mmol/L (22.0-30.0); Chloride 104 mmol/L (98-107); Chol/HDL Ratio 4.6 (1-3.5); Cholesterol 240 mg/dl (140-200); Estimated Glomerular Filt Rate 100 ml/min (>60); GFR (African American) 121 ML/MIN (>60); Globulin 2.8 g/dL (1.3-3.2); Glucose 70 mg/dl (74-100); HDL Cholesterol 52 mg/dl (40-60); Potassium 4.1 mmoL/L (3.5-5.1); Sodium 140 mmol/L (136-145); Total Protein,Serum 7.5 g/dl (6.3-8.2); Triglycerides 286 mg/dl (30-150); VLDL Cholesterol 57 mg/dL (0-40)
[2024-01-20 18:28] LABS: HIV (1&2) Antibody Rapid NONREACTIVE (NONREACTIVE)
[2024-01-20 18:31] LABS: Total Protein,Urine Random < 5.0 mg/dL (0.0-12.0)
[2024-01-20 18:36] LABS: Direct LDL Cholesterol 133.06 mg/dL (100-129); Total Iron Binding Capacity 432 ug/dL (265-497)
[2024-01-20 18:53] LABS: Appearance,Urine CLEAR (Clear); Bilirubin,Urine Negative (Negative); Blood, Urine Negative (Negative); Color,Urine YELLOW (Yellow); Glucose,Urine (UA) Negative (Negative); Ketones,Urine Negative (Negative); Leukocyte Esterase,Urine Negative (Negative); Nitrate,Urine Negative (Negative); Protein,Urine Negative (Negative); Urobilinogen,Urine 0.2 EU/dl (0.2)
[2024-01-20 18:55] LABS: Free T4 (Free Thyroxine) 1.04 ng/dl (0.78-2.19)
[2024-01-20 18:59] LABS: 25-OH Vitamin D, Total 40.9 ng/mL (30-100)
[2024-01-20 19:11] LABS: Thyroid Stimulating Hormone 1.18 uIU/mL (0.465-4.68)
[2024-01-20 19:14] LABS: Ferritin 18.9 ng/ml (11.1-264)
[2024-01-20 19:30] LABS: Vitamin B12 460 pg/mL (239-931)
[2024-01-20 19:32] LABS: Bacteria,Urine Trace /lpf; Squamous Epithelial Cell,Urine Occasional #/hpf (0-5)
[2024-01-20 21:17] LABS: Iron 83 ug/dL (37-170)
[2024-01-21 09:22] LABS: HCV Ab Non Reactive (Non Reactive)
== END 2024-01-20 23:59 | disposition home or self-care (01) ==
LOC: RAD 14:29
PROVIDERS: PCP Nurse Practitioner Family; Visit Provider Nurse Practitioner Family
DX: M25.552 Pain in left hip (principal); M54.50 Low back pain, unspecified; I10 Essential (primary) hypertension; E05.90 Thyrotoxicosis, unspecified without thyrotoxic crisis or storm; R79.89 Other specified abnormal findings of blood chemistry; E78.5 Hyperlipidemia, unspecified; G47.33 Obstructive sleep apnea (adult) (pediatric); D64.9 Anemia, unspecified; R53.83 Other fatigue; R39.9 Unspecified symptoms and signs involving the genitourinary system; M17.12 Unilateral primary osteoarthritis, left knee; M85.80 Other specified disorders of bone density and structure, unspecified site; E55.9 Vitamin D deficiency, unspecified; E53.8 Deficiency of other specified B group vitamins; Z11.59 Encounter for screening for other viral diseases; Z11.4 Encounter for screening for human immunodeficiency virus [HIV]; E61.1 Iron deficiency; Z00.00 Encounter for general adult medical examination without abnormal findings; R42 Dizziness and giddiness; Z78.0 Asymptomatic menopausal state; Z79.899 Other long term (current) drug therapy
CPT/HCPCS: 72100; 73502; 80053; 80061; 81001; 82306; 82607; 82728; 83540; 83550; 84156; 84439; 84443; 85025; 86803; 87086; 87389

== ENCOUNTER 2024-02-17 08:27 | Outpatient (CLI) | payer MEDICARE, SELFPAY ==
--- NOTE | 2024-02-17 08:27 | MM_ITS ---
PROCEDURE INFORMATION: Exam: MG Bilateral Screening 3D Mammography Exam date and time: 02/17/2024 8:11 AM Age: 68 years old Clinical indication: Screening examination. TECHNIQUE: Imaging protocol: Bilateral Screening tomosynthesis and 2D mammography including computer-aided detection (CAD) when performed. COMPARISON: 1. MG MM DIG SCREENING MAMM BI W/CAD 02/14/2023 9:51 AM 2. MG MM DIG SCREENING MAMM BI W/CAD 02/13/2022 8:36 AM FINDINGS: MAMMOGRAPHY: Breast composition: There are scattered areas of fibroglandular density. Mass: None. Architectural distortion: None. Calcifications: No suspicious calcifications. Asymmetric density: None. Skin thickening: None. Axillary adenopathy: None. IMPRESSION: No mammographic evidence of malignancy. Annual screening is recommended unless otherwise clinically indicated. ASSESSMENT: BI-RADS Category 1: Negative.
--- NOTE | 2024-02-17 08:27 | XR_ITS ---
FINAL REPORT CLINICAL HISTORY: osteopenia COMPARISON: 02/13/2022 FINDINGS: Using L1-4, the bone mineral density of the spine is 0.908 g/cm2, corresponding to T-score of -1.3, consistent with low bone density. Previously was 0.902 with T-score of -1.3. Using the left hip, the bone mineral density of the femoral neck is 0.979 g/cm2, corresponding to a T-score of -0.5, within normal limits. Previously was 0.813 with T-score of -1.1. Using the right hip, the bone mineral density of the femoral neck is 0.746 g/cm2, corresponding to a T-score of -0.9, within normal limits. Previously was 0.688 with T-score -1.5. FRAX 10 year fracture risk is 0.6% for a hip fracture and 7.8% for a major osteoporotic fracture. NOTE: T-score: Standard deviation compared with peak bone mass of young adult mean. *Following the recommendations of the International Society of Bone densitometry, classification of hip BMD is based on the lower of two T-scores; total hip or femoral neck. IMPRESSION: Diminished bone mineral density consistent with low bone density. Reviewed, Interpreted and Dictated by Osvaldo Parker III, MD Transcribed by Anamika Trevino Authenticated and [facility]
[2024-02-17 14:55] LABS: Chol/HDL Ratio 2.7 (1-3.5); Cholesterol 143 mg/dl (140-200); HDL Cholesterol 53 mg/dl (40-60); Triglycerides 159 mg/dl (30-150); VLDL Cholesterol 32 mg/dL (0-40)
[2024-02-17 15:06] LABS: Direct LDL Cholesterol 63.26 mg/dL (100-129)
== END 2024-02-17 23:59 | disposition home or self-care (01) ==
LOC: RAD 08:27
PROVIDERS: PCP Nurse Practitioner Family; Visit Provider Nurse Practitioner Family
DX: Z12.31 Encounter for screening mammogram for malignant neoplasm of breast (principal); Z78.0 Asymptomatic menopausal state; M85.80 Other specified disorders of bone density and structure, unspecified site; E78.5 Hyperlipidemia, unspecified
CPT/HCPCS: 77063; 77067; 77080; 80061

== ENCOUNTER 2024-07-28 09:45 | Outpatient (CLI) | payer MEDICARE, SELFPAY ==
--- NOTE | 2024-07-28 09:50 | XR_ITS ---
FINAL REPORT CLINICAL HISTORY: Left knee pain COMPARISON: 06/24/2023 FINDINGS: LEFT KNEE 2 views demonstrate no acute fracture or dislocation. There are severe degenerative changes of the medial compartment and mild degenerative changes of the lateral compartment and patellofemoral joint. There are changes of osteopenia. No acute soft tissue abnormality is seen. IMPRESSION: Worsening degenerative changes without acute abnormality Reviewed, Interpreted and Dictated by Michel Chappell MD Transcribed by Danni Ellis Authenticated and [facility]
== END 2024-07-28 23:59 | disposition home or self-care (01) ==
LOC: RAD 09:48
PROVIDERS: PCP Nurse Practitioner Family; Visit Provider Physician Assistant Surgical
DX: M17.12 Unilateral primary osteoarthritis, left knee (principal)
CPT/HCPCS: 73560

== ENCOUNTER 2024-09-01 13:47 | Outpatient (RCR) | payer MEDICARE, SELFPAY | END 2024-09-01 23:59 | disposition home or self-care (01) | LOC: PT 13:47 | PROVIDERS: PCP Nurse Practitioner Family; Visit Provider Nurse Practitioner Family | DX: M54.50 Low back pain, unspecified (principal); M25.552 Pain in left hip; M17.12 Unilateral primary osteoarthritis, left knee; M54.2 Cervicalgia; M62.830 Muscle spasm of back | CPT/HCPCS: 97163 ==

== ENCOUNTER 2024-10-02 13:00 | Outpatient (RCR) | payer MEDICARE, SELFPAY | END 2024-10-02 23:59 | disposition home or self-care (01) | LOC: PT 13:00 | PROVIDERS: PCP Nurse Practitioner Family; Visit Provider Nurse Practitioner Family | DX: M54.50 Low back pain, unspecified (principal); M25.552 Pain in left hip; M17.12 Unilateral primary osteoarthritis, left knee; M54.2 Cervicalgia; M62.830 Muscle spasm of back | CPT/HCPCS: 97110; 97112; 97530 ==

== ENCOUNTER 2024-12-11 08:07 | Day surgery (SDC) | payer MEDICARE, SELFPAY ==
[2024-12-08 10:40] VITALS: BMI 31.6
--- NOTE | 2024-12-11 06:24 | EXP.GEN.HP ---
HPI HPI HPI: Patient presents to the office for follow-up colonoscopy. She is a 69-year-old female with a family history of colon cancer in her maternal grandfather. Colonoscopy done in 2016 revealed 6-7 tubular adenomas. Colonoscopy 02/07/2018 revealed tubular adenoma. Colonoscopy 12/08/2021 revealed moderate size 9 mm adenoma in the sigmoid colon, rare sigmoid diverticuli, internal anal papillae. Given her prior history of multiple adenomas, findings of a new 9 mm adenoma, and family history of colon cancer repeat colonoscopy was recommended for 3 years. . [facility] Disclaimer: The information contained in this section may have been updated after the patient was seen, as this information can be updated by other users. Medical History Neck pain Skin lesion of face HLD (hyperlipidemia) BMI 33.0-33.9,adult History of left heart catheterization Hypertension Bundle branch block Carpal tunnel syndrome of left wrist Contusion of right shoulder Right shoulder pain Fall Ear canal blister Surgical History History of colonoscopy H/O tubal ligation History of cholecystectomy Family History Father Family history of stroke Mother Cancer Hypertension Other Diabetes Stroke Social History Smoking Status: Never smoker years smoked: 15 alcohol intake: never counseling provided: none substance use type: denies use current occupational status: retired Travel in the last 8 weeks?: None adopted: No caregiver/support person: Yes household members: spouse housing: house marital status: number of children: 2 chcf: No caffeine: No Have you lived/traveled outside [place] in past 30 days?: No Contact w/someone who lives/traveled outside US past 30 days?: No Exposure to someone with infectious disease in past 14 days?: No Do you have a fever (greater than 100.4 F or 38 C)?: No Have you tested positive for COVID-19?: No Exposed to someone with COVID-19 in past 14 days?: No Do you have a sore throat?: No Do you have a cough?: No Do you have any weakness?: No Are you experiencing any nausea/vomitting?: No Do you have any diarrhea?: No Are you experiencing any unusual bleeding?: No Do you have any muscle aches/pain?: No Do you have any abdominal pain?: No Are you experiencing loss of taste or smell?: No Other Medical History Have you received the Flu Vaccine for this season: No Have you received the Pneumonia Vaccine: No Meds Home Medications and Allergies Home Medications ?Medication ?Instructions ?Recorded ?Confirmed ?Type calcium carbonate (Antacid Ultra 430 mg PO DAILY 09/13/22 12/11/24 History Strength) cholecalciferol (vitamin D3) 25 25 mcg PO DAILY 09/13/22 12/11/24 History mcg (1,000 unit) capsule carvedilol 6.25 mg tablet 6.25 mg PO BID bp #180 tabs 04/08/24 12/11/24 Rx loratadine 10 mg tablet (Allergy See Rx Instructions .Route 05/24/24 12/11/24 Rx Relief (loratadine)) .COMPLEX #90 tabs atorvastatin 40 mg tablet 40 mg PO DAILY #90 tabs 08/21/24 12/11/24 Rx New Prescriptions to Start Prescriptions: Allergies Allergy/AdvReac Type Severity Reaction Status Date / Time No Known Allergies Allergy Verified 12/11/24 08:29 Exam Data for Last 24 hours I & O for Last 24 hours: Intake & Output 12/08/24 12/09/24 12/10/24 12/11/24 11:59 11:59 11:59 11:59 Weight 179 lb Constitutional Constitutional: no acute distress *Routine HEENT Exam Head: Present normocephalic Eye: Present EOMI and PERRL ENT: Present mucous membranes moist *Routine Neck Exam Neck: Present supple; Absent lymphadenopathy *Routine Respiratory Exam Respiratory: Present CTA bilaterally *Routine Cardiovascular Exam Cardiovascular: Present RRR *Routine Abdominal Exam Abdominal: Present soft and normoactive bowel sounds; Absent tenderness *Routine Rectal Exam Rectal:: deferred *Routine Genitalia Exam Genitalia:: deferred *Routine Extremities Exam Extremities: Absent cyanosis, clubbing or edema *Routine Skin Exam Skin: Present warm; Absent rash *Routine Neurological Exam Neurological: Present alert and oriented X3 Assessment and Plan *Assessment and plan (1) Tubular adenoma of colon: Status: Acute Category: Medical Code(s): D12.6 - Benign neoplasm of colon, unspecified Plan Colonoscopy
[2024-12-11 08:30] VITALS: BP 153/76; PULSE 91; RESP 18; TEMP 36.1; O2SAT 96
[2024-12-11] MEDS: LACTATED RINGERS 1000ML 1,000 ML 50 ML IV (08:35)
--- NOTE | 2024-12-11 08:42 | EXP.ANES.CKL ---
[facility] Disclaimer: The information contained in this section may have been updated after the patient was seen, as this information can be updated by other users. Medical History Neck pain Skin lesion of face HLD (hyperlipidemia) BMI 33.0-33.9,adult History of left heart catheterization Hypertension Bundle branch block Carpal tunnel syndrome of left wrist Contusion of right shoulder Right shoulder pain Fall Ear canal blister Surgical History History of colonoscopy H/O tubal ligation History of cholecystectomy Family History Father Family history of stroke Mother Cancer Hypertension Other Diabetes Stroke Social History Smoking Status: Never smoker years smoked: 15 alcohol intake: never counseling provided: none substance use type: denies use current occupational status: retired Travel in the last 8 weeks?: None adopted: No caregiver/support person: Yes household members: spouse housing: house marital status: number of children: 2 prison: No caffeine: No Have you lived/traveled outside US in past 30 days?: No Contact w/someone who lives/traveled outside US past 30 days?: No Exposure to someone with infectious disease in past 14 days?: No Do you have a fever (greater than 100.4 F or 38 C)?: No Have you tested positive for COVID-19?: No Exposed to someone with COVID-19 in past 14 days?: No Do you have a sore throat?: No Do you have a cough?: No Do you have any weakness?: No Are you experiencing any nausea/vomitting?: No Do you have any diarrhea?: No Are you experiencing any unusual bleeding?: No Do you have any muscle aches/pain?: No Do you have any abdominal pain?: No Are you experiencing loss of taste or smell?: No [facility] Anesthesia Checklist Patient Identification Patient Identification: Arm Band and Verbal (Name & ) Structural Data Admitted From: Home Planned Operative Procedure/s: colonscopy Consent for Planned Operative Procedure(s) Verified: Yes Verified Documents: Surgical Consent and History and Physical NPO Status Verified Time NPO: 00:00 Additional verifications Anesthesia Reactions: No Previous Colonoscopy: Yes Airway Assessment Mallampati Score:: Class II Dentition: Good Dentition Neurological Assessment Level of Consciousness: Awake, Alert and Appropriate Anesthesia Plan Anesthesia Risk discussed: Yes Anesthesia Plan: Verified ASA Class: II Anesthesia Type: MAC
--- NOTE | 2024-12-11 08:51 | P.PCN_ITS ---
Procedure: Date: 12/11/24 Patient Date of :: 1955 Procedure Performed:: Total colonoscopy to terminal ileum with polypectomy Indications:: Patient presents to the office for follow-up colonoscopy. She is a 69-year-old female with a family history of colon cancer in her maternal grandfather. Colonoscopy done in 2015 revealed 6-7 tubular adenomas. Colonoscopy 02/07/2018 revealed tubular adenoma. Colonoscopy 12/08/2021 revealed moderate size 9 mm adenoma in the sigmoid colon, rare sigmoid diverticuli, internal anal papillae. Given her prior history of multiple adenomas, findings of a new 9 mm adenoma, and family history of colon cancer repeat colonoscopy was recommended for 3 years. . Performing Provider:: Osvaldo Bender MD Referring Provider:: Rosario Kearney . Sedation:: MAC sedation . Procedure:: Patient history was obtained and appropriate physical examination was performed. Patient's medications and allergies were reviewed. Informed consent was obtained after explaining the benefits, alternatives, and risks of the procedure including, but not limited to, bleeding, perforation, missed lesions, and adverse reaction to anesthesia medications. Patient was transported to endoscopy procedure room. Patient was connected to monitoring devices. Throughout the procedure the patient's blood pressure, pulse, and oxygen saturations were monitored continuously. Patient identification and planned procedure were verified by the staff. Patient was positioned in lateral decubitus position. Digital anorectal exam was performed. Variable stiffness Olympus colonoscope was inserted and advanced under direct visualization to the cecum. Adequacy of the colonic preparation was noted. The colonoscope was advanced a short distance into the terminal ileum. The colonoscope was then slowly withdrawn while carefully examining the color, texture, anatomy, and integrity of the mucosoa circumferentially. Within the rectum retroflexion was performed. Colonoscope was then withdrawn. . Impression: Colonic preparation was good. On the ileocecal valve there were a couple of diminutive nodules which were removed with biopsy forceps and sent as cecal polyp x 2. Possibly lymphoid aggregate. Ascending colon there was a diminutive polyp removed with biopsy forceps. Hepatic flexure there is diminutive polyp removed with biopsy forceps. In the descending colon there was a diminutive p olyp removed with biopsy forceps. The sigmoid colon there was a diminutive small polyp removed with biopsy forceps. This was actually adjacent to possible previous polypectomy scar. Retroflexion revealed internal anal papillae. She had a few sigmoid diverticuli. . Findings:: Diminutive polyps as noted above Rare sigmoid diverticuli Internal anal papillae . Recommendations:: Repeat colonoscopy pending pathology. Likely 3 to 5 years. Complications:: None immediately apparent Estimated blood obtained (mL): 1 Colonoscopy Component Colonoscopy Component Was a colonoscopy performed during today's procedure?: Yes Recommended follow up colonoscopy of at least 10 years?: No If no, follow up colonoscopy recommended in ___ years?: See above Reason for not recommending >/= 10 yr follow-up interval?: See above
[2024-12-11 09:26] VITALS: BP 120/69; PULSE 87; RESP 16; TEMP 36.4; O2SAT 95
[2024-12-11 09:36] VITALS: BP 113/65; PULSE 83; RESP 16; TEMP 36.4; O2SAT 96
[2024-12-11 09:46] VITALS: BP 127/91; PULSE 81; RESP 17; TEMP 36.4; O2SAT 96
[2024-12-11 09:56] VITALS: BP 131/86; PULSE 81; RESP 18; TEMP 36.4; O2SAT 99
== END 2024-12-11 09:56 | disposition home or self-care (01) ==
PROVIDERS: PCP Nurse Practitioner Family; Visit Provider Surgery
PROC: 0DJD8ZZ Inspection of Lower Intestinal Tract, Via Natural or Artificial Opening Endoscopic (ICD-10-PCS; principal; 2024-12-11 09:30)
DX: D12.0 Benign neoplasm of cecum (principal); D12.2 Benign neoplasm of ascending colon; D12.3 Benign neoplasm of transverse colon; D12.4 Benign neoplasm of descending colon; D12.5 Benign neoplasm of sigmoid colon; K57.30 Diverticulosis of large intestine without perforation or abscess without bleeding; I10 Essential (primary) hypertension; E78.5 Hyperlipidemia, unspecified; Z90.49 Acquired absence of other specified parts of digestive tract; Z86.0101 Personal history of adenomatous and serrated colon polyps; Z80.0 Family history of malignant neoplasm of digestive organs; Z79.899 Other long term (current) drug therapy
CPT/HCPCS: 45380; J2003; J2704; J7120

== ENCOUNTER 2025-01-25 14:00 | Outpatient (CLI) | payer MEDICARE, SELFPAY ==
[2025-01-25 16:03] LABS: Microscopic, Urine URINE MICROSCOPIC (MICROSCOPIC)
[2025-01-25 16:40] LABS: Bilirubin,Urine Negative (Negative); Color,Urine YELLOW (Yellow); Glucose,Urine (UA) Negative (Negative); Ketones,Urine Negative (Negative); Leukocyte Esterase,Urine 1+ (Negative); PH,Urine 6.5 (5.0-8.5); Protein,Urine Negative (Negative); Specific Gravity, Urine <= 1.005 (1.005-1.030); Urobilinogen,Urine 0.2 EU/dl (0.2)
[2025-01-25 16:56] LABS: Bacteria,Urine 1+ /lpf
[2025-01-25 18:04] LABS: Alanine Aminotransferase 31 U/L (12-78); Albumin Level 4.5 g/dl (3.5-5.0); Albumin/Globulin Ratio 1.8 (1.1-1.8); Alkaline Phosphatase 137 U/L (38-126); Anion Gap 12.2 mEq/L (5-15); Aspartate Amino Transferase 29 U/L (14-36); Bilirubin,Total 0.8 mg/dl (0.2-1.3); Blood Urea Nitrogen 9 mg/dl (7-17); Calcium 10.0 mg/dl (8.4-10.2); Carbon Dioxide 28 mmol/L (22.0-30.0); Chloride 101 mmol/L (98-107); Cholesterol 146 mg/dl (140-200); Creatinine,Serum 0.70 mg/dl (0.52-1.04); Estimated Glomerular Filt Rate 83 ml/min (>60); GFR (African American) 101 ML/MIN (>60); Globulin 2.5 g/dL (1.3-3.2); Glucose 72 mg/dl (74-100); HDL Cholesterol 57 mg/dl (40-60); Hematocrit 41.1 % (37.0-47.0); Hemoglobin 13.1 g/dL (12.2-16.2); Immature Granulocytes % 0.2 %; Iron 96 ug/dL (37-170); Mean Corpuscular HGB Conc 31.9 g/dL (31.8-35.4); Mean Corpuscular Hemoglobin 30.3 pg (27.0-31.2); Mean Corpuscular Volume 94.9 fl (81-99); Nucleated Red Blood Cells % 0 %; Platelet Count 270 K/mm3 (142-424); Potassium 4.2 mmoL/L (3.5-5.1); Red Blood Count 4.33 M/mm3 (4.20-5.40); Red Cell Distribution Width-SD 43.8 fL; Sodium 137 mmol/L (136-145); Total Protein,Serum 7.0 g/dl (6.3-8.2); Triglycerides 143 mg/dl (30-150); White Blood Count 6.5 K/mm3 (4.8-10.8)
[2025-01-25 18:20] LABS: 25-OH Vitamin D, Total 41.6 ng/mL (30-100); Free T4 (Free Thyroxine) 1.04 ng/dl (0.78-2.19)
[2025-01-25 18:38] LABS: Ferritin 20.0 ng/ml (11.1-264)
[2025-01-25 20:50] LABS: Total Iron Binding Capacity 431 ug/dL (265-497)
[2025-01-25 21:08] LABS: Vitamin B12 416 pg/mL (239-931)
[2025-01-25 22:49] LABS: Thyroid Stimulating Hormone 1.78 uIU/mL (0.465-4.68)
== END 2025-01-25 23:59 | disposition home or self-care (01) ==
LOC: LAB.DROPOF 01-26 10:42
PROVIDERS: PCP Nurse Practitioner Family; Visit Provider Nurse Practitioner Family
DX: Z00.00 Encounter for general adult medical examination without abnormal findings (principal); Z12.31 Encounter for screening mammogram for malignant neoplasm of breast; E53.8 Deficiency of other specified B group vitamins; R79.89 Other specified abnormal findings of blood chemistry; D64.9 Anemia, unspecified; E55.9 Vitamin D deficiency, unspecified; M17.12 Unilateral primary osteoarthritis, left knee; M17.11 Unilateral primary osteoarthritis, right knee; J30.2 Other seasonal allergic rhinitis; M85.80 Other specified disorders of bone density and structure, unspecified site; E78.5 Hyperlipidemia, unspecified; I10 Essential (primary) hypertension; G47.33 Obstructive sleep apnea (adult) (pediatric); Z68.32 Body mass index [BMI] 32.0-32.9, adult; R39.9 Unspecified symptoms and signs involving the genitourinary system; H10.9 Unspecified conjunctivitis; R53.83 Other fatigue; R41.3 Other amnesia
CPT/HCPCS: 80053; 80061; 81001; 82306; 82607; 82728; 83540; 83550; 84156; 84439; 84443; 85025; 87086

== ENCOUNTER 2025-02-26 10:16 | Outpatient (CLI) | payer MEDICARE, SELFPAY ==
--- OUTSIDE RECORDS SUMMARY | 2025-02-26 10:18 | XMS_ITS | Clinical Summary ---
Author Organization Healthcare Address [address] [place] [address] Care Team Providers Care Grain Elevator Man Name Role Phone Sivakumar Huff Primary Care Provider [phone] Allergies No known active allergies Medications atorvastatin (Lipitor) 40 MG tablet Active carvedilol (Coreg) 6.25 MG tablet Active loratadine (Claritin) 10 MG tablet Active Na Sulfate-K Sulfate-Mg Sulf 17.5-3.13-1.6 GM/177ML solution DILUTE, DRINK FULL AMOUNT EARLY EVENING BEFORE AND NEXT MORNING AT LEAST 2 HOURS BEFORE PROCEDURE, FOLLOW WITH 960ML OF WATER 11/24/2024 Active Active Problems No known active problems Encounters Date Type Department Care Team Description 12/15/2024 2:30 PM EDT Procedure Visit Interventional Pain Medicine [address] [place] [address] Marc Amezquita MD Chronic pain of both knees; Bilateral primary osteoarthritis of knee 12/15/2024 Travel 12/14/2024 Travel 12/09/2024 1:30 PM EDT Office Visit Interventional Pain Medicine [address] [place] [address] Marc Amezquita MD Chronic pain of both knees (Primary Dx); Bilateral primary osteoarthritis of knee 12/09/2024 Travel 12/08/2024 Travel from Last 3 Months Social History Tobacco Use Types Packs/Day Years Used Date Smoking Tobacco: Never Smokeless Tobacco: Never Tobacco Cessation:Counseling Given: Not Answered Comments No Sex and Gender Information Value Date Recorded Sex Assigned at Not on file Legal Sex Female 5:57 PM EDT Gender Identity Not on file Sexual Orientation Not on file Last Filed Vital Signs Vital Sign Reading Time Taken Comments Blood Pressure 116/77 12/15/2024 2:51 PM EDT Pulse 82 12/15/2024 2:51 PM EDT Temperature 36.6 C (97.8 F) 12/15/2024 2:29 PM EDT Respiratory Rate 17 12/15/2024 2:51 PM EDT Oxygen Saturation 97% 12/15/2024 2:51 PM EDT Inhaled Oxygen Concentration - - Weight 83 kg (183 lb) 12/15/2024 2:29 PM EDT Height 160 cm (5' 3 ) 12/15/2024 2:29 PM EDT Body Mass Index 32.42 12/15/2024 2:29 PM EDT Plan of Treatment Health Maintenance Due Date Last Done Comments [facility]-Bone Density Scan 1955 [facility]-Depression Screening 1955 [facility]-Hepatitis C Screening 1955 [facility]-Medicare Annual Wellness (AWV) 1955 [facility]-/Child/Adol SDOH Screenings 1955 [facility]- SDOH Screenings 1974 [facility]-Adult SDOH Screenings 1974 CT Colonography 2001 Colonoscopy 2001 FIT-DNA 2001 FIT 2001 FOBT 2001 Sigmoidoscopy 2001 [facility]-Colorectal Cancer Screening 2001 [facility]-Breast Cancer Screening 2006 [facility]-Pneumococcal Vaccine: 50+ Years (1 of 1 - PCV) 2006 [id number] Vaccine (1 - season) 2024 [facility]-Influenza Vaccine (#1) 2024 [facility]-RSV Vaccine: 60+ Years or (1 - 1-dose 75+ series) 08/03/2031 [facility]-DTaP,Tdap,and Td Vaccines (2 - Td or Tdap) 01/17/2033 01/17/2023 [facility]-Zoster Vaccines Completed 04/17/2023, [facility]-Obesity Intervention Completed 025, 12/09/2024, 09/08/2024, Additional history exists HPV Vaccines (No Doses Required) Completed [facility]-HIB Vaccines Aged Out No longer e ligible based on patient's age to complete this topic [facility]-Hepatitis A Vaccines Aged Out No longer eligible based on patient's age to complete this topic [facility]-IPV Vaccines Aged Out No longer e ligible based on patient's age to complete this topic [facility]-Rotavirus Vaccines Aged Out No lo nger eligible based on patient's age to complete this topic Procedures Procedure Name Priority Date/Time Associated Diagnosis Comments IVP NURSE PROCEDURE PROTOCOL Routine 12/15/2024 2:30 PM EDT [address] [place] GUIDED NEEDLE PLACEMENT Routine 12/15/2024 2:30 PM EDT Chronic pain of both knees Bilateral primary osteoarthritis of knee TN ARTHROCENTESIS ASPIR&/INJ MAJOR JT/BURSA W/O US Routine 12/15/2024 2:30 PM EDT Chronic pain of both knees Bilateral primary osteoarthritis of knee from Last 3 Months Results * TN ARTHROCENTESIS ASPIR&/INJ MAJOR JT/BURSA W/[place], [address] FL GUIDED NEEDLE PLACEMENT (12/15/2024 2:30 PM EDT) Marc Smith MD - 12/15/2024 2:30 PM EDT Marc Amezquita MD 12/15/2024 4:16 PM Injection - Large Joint: bilateral knee Indications: pain Details: 22 G needle, fluoroscopy-guided lateral approach Procedure, treatment alternatives, risks and benefits explained, specific risks discussed. Consent was given by the patient. Immediately prior to procedure a time out was called to verify the correct patient, procedure, equipment, production support analyst and site/side marked as required. Patient was prepped and draped in the usual sterile fashion. us Marc Amezquita MD IN CLINIC/BEDSIDE ORDERABLES Final Result * Interventional Pain Nurse Procedure Protocol (12/15/2024 2:30 PM EDT) Lily Alexander RN - 12/15/2024 2:30 PM Lily Keita RN 12/15/2024 4:16 PM Interventional Pain Nurse Procedure Protocol Documentation: Indications: Documentation supporting primary procedure completed by : Marc Amezquita MD See the provider procedure note for performed procedure details and findings. Pre-Procedure Checklist: Currently taking anticoagulant(s)?: no Therapy Teacher present?: yes Additional Pre-Procedure Comments: Time out per protocol by Lily Natarajan RN at 2:41 PM Procedure details: Procedure start time:: 12/15/2024 2:43 PM Procedure end time:: 12/15/2024 2:50 PM Guidance used (if applicable): fluoro Total amount of contrast dye (mGy): 0.6 Fluoro time: 17.9 seconds Moderate conscious sedation used?: no Post-procedure details: Orientation at discharge?: Normal to time, normal to place, normal to person, normal to situation and completely oriented Mood and Affect normal?: yes Discharged to: home Mode of exit: Walked (to [facility] at 3:00 PM) Attendance: Constant attendance by certified staff until patient recovered Recovery: Patient returned to pre-procedure baseline Estimated blood loss (see I/O flowsheets): no Specimens recovered: None Patient is stable for discharge or admission: yes Procedure completion: Tolerated well, no immediate complications Marc Amezquita MD IN CLINIC/BEDSIDE ORDERABLES Final Result from Last 3 Months Insurance [employer] [address] [place] [address] MEDICARE Care Teams Grain Elevator Man Relationship Specialty Start Date End Date Sivakumar Huff DO [address] [facility] [address] [id number] [facility] - General 08/19/24
--- OUTSIDE RECORDS SUMMARY | 2025-02-26 10:18 | XMS_ITS | Encounter Summary ---
Author Organization Healthcare Address [address] [place] [address] Care Team Providers Care Cut Roll Machine Operator Name Role Phone Sivakumar Huff DO Primary Care Provider [phone] Encounter Details Date Type Department Care Team ([facility] st Contact Info) Description 07/28/2024 Orders Only External Location [address] [place] [address] Provider, External Social History Tobacco Use Types Packs/Day Years Used Date Smoking Tobacco: Never Assessed Comments Unknown Sex and Gender Information Value Date Recorded Sex Assigned at Not on file Legal Sex Female 5:57 PM EDT Gender Identity Not on file Sexual Orientation Not on file documented as of this encounter Plan of Treatment Not on file documented as of this encounter Procedures Procedure Name Priority Date/Time Associated Diagnosis Comments XR MSK OUTSIDE IMAGES 07/28/2024 9:58 AM EDT documented in this encounter Results * XR MSK OUTSIDE IMAGES (07/28/2024 9:58 AM EDT) Anatomical Region Laterality Modality Radiographic Maya ging 07/28/2024 9:58 AM EDT us External Provider IMG XR PROCEDURES Final Result documented in this encounter Visit Diagnoses Not on filedocumented in this encounter Care Teams Cut Roll Machine Operator Relationship Specialty Start Date End Date Sivakumar Huff DO [address] [place] [address] [place] [id number] PCP - General 08/19/24 documented as of this encounter
--- NOTE | 2025-02-26 10:30 | MM_ITS ---
PROCEDURE INFORMATION: Exam: MG Bilateral Screening 3D Mammography Exam date and time: 02/26/2025 10:30 AM Age: 69 years old Clinical indication: Screening examination. TECHNIQUE: Imaging protocol: Bilateral Screening tomosynthesis and 2D mammography including computer-aided detection (CAD) when performed. COMPARISON: 1. MG MM DIG SCREENING MAMM BI W/CAD 02/17/2024 8:11 AM 2. MG MM DIG SCREENING MAMM BI W/CAD 02/14/2023 9:51 AM FINDINGS: MAMMOGRAPHY: Breast composition: There are scattered areas of fibroglandular density. Mass: None. Architectural distortion: None. Calcifications: No suspicious calcifications. Asymmetric density: None. Skin thickening: None. Axillary adenopathy: None. IMPRESSION: No mammographic evidence of malignancy. Annual screening is recommended unless otherwise clinically indicated. ASSESSMENT: BI-RADS Category 1: Negative.
== END 2025-02-26 23:59 | disposition home or self-care (01) ==
LOC: RAD 10:16
PROVIDERS: PCP Nurse Practitioner Family; Visit Provider Nurse Practitioner Family
DX: Z12.31 Encounter for screening mammogram for malignant neoplasm of breast (principal); R92.323 Mammographic fibroglandular density, bilateral breasts
CPT/HCPCS: 77063; 77067

== ENCOUNTER 2025-02-27 08:21 | Outpatient (CLI) | payer MEDICARE, SELFPAY ==
--- OUTSIDE RECORDS SUMMARY | 2025-03-01 08:25 | XMS_ITS | Encounter Summary ---
Author Organization Healthcare Address [address] [place] [address] Care Team Providers Care Final Inspector Shuttle Name Role Phone Sivakumar Huff DO Primary Care Provider [phone] Encounter Details Date Type Department Care Team ([facility] st Contact Info) Description 07/28/2024 Orders Only External Location [address] [place] [address] Provider, External Social History Tobacco Use Types [...] on filedocumented in this encounter Care Teams Final Inspector Shuttle Relationship Specialty Start Date End Date Sivakumar Huff DO [address] [place] [address] [place] [id number] PCP - General 08/19/24 documented as of this encounter
--- OUTSIDE RECORDS SUMMARY | 2025-03-01 08:25 | XMS_ITS | Clinical Summary ---
Author Organization Healthcare Address [address] [place] [address] Care Team Providers Care Information Security Name Role Phone Sivakumar Huff Primary Care Provider Allergies No known active allergies Medications atorvastatin [...] Interventional Pain Medicine [address] [place] [address] Marc Amezquita MD Chronic pain of both knees; Bilateral primary osteoarthritis of knee 12/15/2024 Travel 12/14/2024 Travel 12/09/2024 1:30 PM EDT Office Visit Interventional Pain Medicine [address] [place] [address] Marc Amezquita MD Chronic pain of both [...] Years (1 of 1 - PCV) 2006 [id number] Vaccine (1 - season) 2024 [facility]-Influenza Vaccine [...] PROCEDURE PROTOCOL Routine 12/15/2024 2:30 PM EDT [address] [place] GUIDED NEEDLE PLACEMENT Routine 12/15/2024 2:30 PM EDT Chronic pain of both knees Bilateral primary osteoarthritis of knee TN ARTHROCENTESIS ASPIR&/INJ MAJOR JT/BURSA W/O US Routine 12/15/2024 2:30 PM EDT Chronic pain of both knees Bilateral primary osteoarthritis of knee from Last 3 Months Results * TN ARTHROCENTESIS ASPIR&/INJ MAJOR JT/BUR[place], [address] FL GUIDED NEEDLE PLACEMENT (12/15/2024 2:30 PM [...] to verify the correct patient, procedure, equipment, student support services director and site/side marked as required. Patient was [...] findings. Pre-Procedure Checklist: Currently taking anticoagulant(s)?: no Weaver Wire Loom present?: yes Additional Pre-Procedure Comments: Time out [...] to: home Mode of exit: Walked (to [facility] at 3:00 PM) Attendance: Constant attendance by certified staff until patient recovered Recovery: Patient returned to pre-procedure baseline Estimated blood loss (see I/O flowsheets): no Specimens recovered: None Patient is stable for discharge or admission: yes Procedure completion: Tolerated well, no immediate complications Marc Amezquita MD IN CLINIC/BEDSIDE ORDERABLES Final Result from Last 3 Months Insurance [employer] [address] [place] [address] MEDICARE Care Teams Information Security Relationship Specialty Start Date End Date Sivakumar Huff DO [address] [facility] [address] [id number] [facility] - General 08/19/24
== END 2025-02-27 23:59 | disposition home or self-care (01) ==
LOC: LAB.DROPOF 03-01 08:22
PROVIDERS: PCP Nurse Practitioner Family; Visit Provider Nurse Practitioner
DX: R35.0 Frequency of micturition (principal)
CPT/HCPCS: 87086